=== PATIENT | female | born 1995 | race Caucasian/White ===

== ENCOUNTER 2023-02-22 15:00 | Emergency (ER) | payer BC, SELFPAY ==
[2023-02-22 15:12] VITALS: BP 145/86; PULSE 90; RESP 16; TEMP 36.9; O2SAT 100
[2023-02-22 15:13] VITALS: BP 145/86; PULSE 90; RESP 16; TEMP 36.9; O2SAT 100
--- NOTE | 2023-02-22 15:31 | ED.UPPEXIN ---
HPI - Extremity Injury (Upper) General Chief Complaint: Extremity Injury, Upper Stated Complaint: Left Arm Pain Time Seen by Provider: 02/22/23 15:02 Source: patient Mode of arrival: ambulatory Limitations: no limitations History of Present Illness HPI narrative: 27-year-old female [facility] complains of abrasion to the palmar aspect of her left arm since last evening. Patient reports that she was walking [place] home when she fell over a rock landing on her left arm on concrete. patient denies hitting her head or loss of conscious. Patient reports her last tetanus shot was within 5 years. Patient reports that she was not sure how to clean abrasions she came to [facility] today. Patient denies pain to her left arm with range of motion. Patient denies need for x-ray today MD complaint: injury to: left and arm Onset (ago): hour(s) (12) Other Extremity Injury: Left: arm Place: outdoors Context: fall Associated symptoms: denies other symptoms Related Data Home Medications Medication Instructions Recorded Confirmed lamotrigine 50 mg tablet,extended 100 mg PO DAILY 06/09/22 02/22/23 release 24 hr trazodone 50 mg tablet 50 mg PO QHS 06/09/22 02/22/23 duloxetine 60 mg capsule,delayed mg PO 02/22/23 02/22/23 release Allergies Allergy/AdvReac Type Severity Reaction Status Date / Time amoxicillin Allergy Unknown Unknown Verified 12/04/22 16:30 Penicillins Allergy Unknown Rash Verified 02/22/23 15:12 Review of Systems Constitutional: Constitutional: Denies chills, Denies fatigue, Denies fever(s) and Denies weakness ENT: Denies vertigo, Denies dizziness and Denies nasal congestion Cardiovascular: Cardiovascular: Denies chest pain Respiratory: Respiratory: Denies cough, Denies dyspnea and Denies wheezing Gastrointestinal: Gastrointestinal: Denies heartburn, Denies diarrhea, Denies nausea and Denies vomiting Integumentary/Breasts: Skin/Breast: Denies pruritus and Denies rash Comments: abrasions to left arm PMFSH Past Medical History Medical History Elevated random blood glucose level Elevated TSH Family History Family History Mother Hypertension Other Family history of cardiovascular disease Social History Social History Smoking status: Never smoker Second hand tobacco smoke exposure: No Alcohol intake: current Alcohol use details: rare Substance use: current Substance use type: marijuana Other substance usage details: edibles sometimes Living arrangements: with family Occupation/Education: occupation Gender identity (if verbalized by the patient): Female Comments At time of signature, I agree with nursing past medical, surgical, social and family history. There is no relevant family history pertinent to the presenting complaint. Exam Const: General: healthy appearing and no acute distress Nutritional Appearance: well nourished Orientation/consciousness: patient oriented x3 Limitations: no limitations Eyes: Conjunctivae: conjunctivae normal Neck: Neck: normal visual inspection Resp: Effort & Inspection: normal respiratory effort and not labored Auscultation: clear to auscultation bilaterally, no crackles, no rales, no rhonchi and no wheezes Cardio: Rate: regular rate Rhythm: regular rhythm Heart sounds: no murmurs Skin: General skin exam: normal color Wounds: wounds noted ( linear abrasions noted to the palmar aspect of left arm) Other: no swelling, erythema or purulent drainage noted Neuro: General: patient oriented x3 Speech: normal speech Psych: Affect: normal affect Attitude: cooperative Course Course Level of Care: [facility] Visit Vital Signs Vital signs: Vital Signs Temperature 36.9 C 02/22/23 15:12 Pulse Rate 90 02/22/23 15:12
== END 2023-02-22 15:45 | disposition home or self-care (01) ==
PROVIDERS: Emergency Provider Nurse Practitioner Family; PCP Family Medicine
DX: S40.812A Abrasion of left upper arm, initial encounter (principal); W19.XXXA Unspecified fall, initial encounter
CPT/HCPCS: 99213; G0463